=== PATIENT | male | born 1955 | race Caucasian/White ===

== ENCOUNTER 2018-03-11 12:06 | Inpatient (IN) | payer OTHER ==
[2018-03-11 12:49] LABS: BASO # 0.1 10^3/uL (0.0-0.2); BASO % 0.5 % (0.0-1.0); EOS # 0.1 10^3/uL (0.0-0.50); EOS % 1.3 % (0.0-3.0); HEMATOCRIT 44.5 % (42.0-52.0); HEMOGLOBIN 14.9 g/dl (13.5-17.5); IMMATURE GRANULOCYTE % 1.6 % (0-3.0); LYMPH # 2.7 10^3/uL (1.5-4.5); LYMPH % 25.3 % (24.0-44.0); MEAN CORPUSCULAR HEMOGLOBIN 30.4 pg (27.0-33.0); MEAN CORPUSCULAR HGB CONC 33.5 g/dl (32.0-36.5); MEAN CORPUSCULAR VOLUME 90.8 fl (80.0-96.0); MONO # 0.8 10^3/uL (0.0-0.8); NEUTROPHILS # 6.9 10^3/uL (1.8-7.7); NEUTROPHILS % 64.3 % (36.0-66.0); PLATELET COUNT, AUTOMATED 278 10^3/uL (150-450); RED CELL DISTRIBUTION WIDTH 14.2 % (11.5-14.5); WHITE BLOOD COUNT 10.7 10^3/uL (4.0-10.0)
[2018-03-11 12:57] LABS: INR 0.93; PROTHROMBIN TIME 12.6 SECONDS (12.1-14.4)
[2018-03-11 12:58] LABS: PARTIAL THROMBOPLASTIN TIME 26.3 SECONDS (25.4-37.6)
[2018-03-11] MEDS ORDERED: ISOVUE-370 76% 100ML VIAL (Q9967) As Ordered (13:11)
[2018-03-11 13:14] LABS: ALBUMIN 3.6 GM/DL (3.2-5.2); ALKALINE PHOSPHATASE 59 U/L (45-117); ALT/SGPT 47 U/L (12-78); ANION GAP 13 MEQ/L (8-16); AST/SGOT 29 U/L (7-37); BILIRUBIN,DIRECT 0.2 MG/DL (0.0-0.2); BILIRUBIN,TOTAL 0.4 MG/DL (0.2-1.0); BLOOD UREA NITROGEN 29 MG/DL (7-18); CALCIUM LEVEL 9.3 MG/DL (8.8-10.2); CARBON DIOXIDE LEVEL 25 MEQ/L (21-32); CHLORIDE LEVEL 104 MEQ/L (98-107); CPK CREATINE PHOSPHOKINASE 344 U/L (39-308); CREATININE FOR GFR 1.16 MG/DL (0.70-1.30); GLOMERULAR FILTRATION RATE > 60.0 (>49); GLUCOSE, FASTING 156 MG/DL (70-100); MB/CK RELATIVE INDEX 1.63 (< OR =4); POTASSIUM SERUM 3.9 MEQ/L (3.5-5.1); SODIUM LEVEL 142 MEQ/L (136-145); TOTAL PROTEIN 7.2 GM/DL (6.4-8.2); TROPONIN I < 0.02 NG/ML (< 0.10)
[2018-03-11] MEDS ORDERED: MORPHINE 4 MG/ML 1ML VIAL/SYRINGE (J2270) As Ordered (13:39)
[2018-03-11] MEDS: MORPHINE 4 MG/ML 1ML VIAL/SYRINGE (J2270) IV (13:45)
[2018-03-11] MEDS ORDERED: NORCO, ANEXSIA 5/325MG TABLET (HYDROcodone/ACETAMINOPHEN) PO (15:30)
[2018-03-11] MEDS ORDERED: METOCLOPRAMIDE INJ 10MG/2ML VIAL (J2765) IV (15:30)
[2018-03-11] MEDS ORDERED: HYDROMORPHONE HCL 0.5 MG/ 0.5 ML SYRINGE (J1170 PER 1) IV (15:30)
[2018-03-11] MEDS ORDERED: PROMETHAZINE INJ 25 MG/ML VIAL (J2550) IV (15:30)
[2018-03-11] MEDS: NORCO, ANEXSIA 5/325MG TABLET (HYDROcodone/ACETAMINOPHEN) PO (16:14)
[2018-03-11] MEDS: ONDANSETRON 4MG/2ML VIAL (J2405) IV (16:15)
[2018-03-11] MEDS: KETOROLAC 30 MG/ML VIAL (J1885) IV ×2 (16:19→21:19)
[2018-03-11] MEDS: NS 1,000 ML IV (16:26)
[2018-03-11] MEDS: DOCUSATE SODIUM 100 MG CAP PO (21:18)
[2018-03-12] MEDS: KETOROLAC 30 MG/ML VIAL (J1885) IV ×4 (04:23→22:24)
[2018-03-12 06:13] LABS: HEMATOCRIT 38.5 % (42.0-52.0); MEAN CORPUSCULAR HEMOGLOBIN 30.2 pg (27.0-33.0); MEAN CORPUSCULAR HGB CONC 32.7 g/dl (32.0-36.5); MEAN CORPUSCULAR VOLUME 92.3 fl (80.0-96.0); PLATELET COUNT, AUTOMATED 201 10^3/uL (150-450); RED BLOOD COUNT 4.17 10^6/uL (4.30-6.10); RED CELL DISTRIBUTION WIDTH 14.5 % (11.5-14.5); WHITE BLOOD COUNT 7.1 10^3/uL (4.0-10.0)
[2018-03-12] MEDS: NS 1,000 ML IV (06:17)
[2018-03-12 06:21] LABS: HEMOGLOBIN 12.6 g/dl (13.5-17.5)
[2018-03-12 06:36] LABS: ANION GAP 9 MEQ/L (8-16); BLOOD UREA NITROGEN 30 MG/DL (7-18); CALCIUM LEVEL 8.5 MG/DL (8.8-10.2); CARBON DIOXIDE LEVEL 25 MEQ/L (21-32); CHLORIDE LEVEL 108 MEQ/L (98-107); CREATININE FOR GFR 1.33 MG/DL (0.70-1.30); GLOMERULAR FILTRATION RATE 58.2 (>49); GLUCOSE, FASTING 109 MG/DL (70-100); POTASSIUM SERUM 4.3 MEQ/L (3.5-5.1); SODIUM LEVEL 142 MEQ/L (136-145)
[2018-03-12] MEDS: hydroCHLOROthiazide 25 MG TAB PO (08:23)
[2018-03-12] MEDS: DOCUSATE SODIUM 100 MG CAP PO ×2 (08:23→22:22)
[2018-03-12] MEDS: PANTOPRAZOLE 40MG TAB (PROTONIX) PO (08:23)
[2018-03-12] MEDS: ATENOLOL 25 MG TAB PO (08:24)
[2018-03-12] MEDS: ATORVASTATIN 20 MG TAB PO (08:24)
[2018-03-12] MEDS: LISINOPRIL 20 MG TAB PO (08:24)
[2018-03-12] MEDS: INFLUENZA QUADRIVALENT PF VACCINE 0.5ML SYRINGE (90686) IM (08:27)
[2018-03-12] MEDS ORDERED: SLF 3 ML SYR IV (11:30)
[2018-03-12] MEDS: SLF 3 ML SYR IV ×2 (14:00→22:24)
[2018-03-13] MEDS: SLF 3 ML SYR IV ×3 (03:57→21:14)
[2018-03-13] MEDS: KETOROLAC 30 MG/ML VIAL (J1885) IV ×4 (03:57→21:13)
[2018-03-13 07:02] LABS: HEMOGLOBIN 12.5 g/dl (13.5-17.5); MEAN CORPUSCULAR HGB CONC 32.9 g/dl (32.0-36.5); MEAN CORPUSCULAR VOLUME 91.3 fl (80.0-96.0); PLATELET COUNT, AUTOMATED 199 10^3/uL (150-450); RED BLOOD COUNT 4.16 10^6/uL (4.30-6.10); RED CELL DISTRIBUTION WIDTH 14.3 % (11.5-14.5); WHITE BLOOD COUNT 7.1 10^3/uL (4.0-10.0)
[2018-03-13 07:22] LABS: ANION GAP 8 MEQ/L (8-16); BLOOD UREA NITROGEN 28 MG/DL (7-18); CALCIUM LEVEL 8.5 MG/DL (8.8-10.2); CARBON DIOXIDE LEVEL 25 MEQ/L (21-32); CHLORIDE LEVEL 108 MEQ/L (98-107); CREATININE FOR GFR 1.11 MG/DL (0.70-1.30); GLOMERULAR FILTRATION RATE > 60.0 (>49); GLUCOSE, FASTING 101 MG/DL (70-100); POTASSIUM SERUM 4.2 MEQ/L (3.5-5.1); SODIUM LEVEL 141 MEQ/L (136-145)
[2018-03-13] MEDS: DOCUSATE SODIUM 100 MG CAP PO ×2 (09:20→21:12)
[2018-03-13] MEDS: ATENOLOL 25 MG TAB PO (09:20)
[2018-03-13] MEDS: LISINOPRIL 20 MG TAB PO (09:20)
[2018-03-13] MEDS: hydroCHLOROthiazide 25 MG TAB PO (09:21)
[2018-03-13] MEDS: PANTOPRAZOLE 40MG TAB (PROTONIX) PO (09:21)
[2018-03-13] MEDS: ATORVASTATIN 20 MG TAB PO (09:21)
[2018-03-14] MEDS: KETOROLAC 30 MG/ML VIAL (J1885) IV ×2 (04:16→10:40)
[2018-03-14] MEDS: SLF 3 ML SYR IV (04:17)
[2018-03-14] MEDS: PANTOPRAZOLE 40MG TAB (PROTONIX) PO (08:07)
[2018-03-14] MEDS: DOCUSATE SODIUM 100 MG CAP PO (08:07)
[2018-03-14] MEDS: LISINOPRIL 20 MG TAB PO (08:07)
[2018-03-14] MEDS: ATORVASTATIN 20 MG TAB PO (08:08)
[2018-03-14] MEDS: hydroCHLOROthiazide 25 MG TAB PO (08:08)
[2018-03-14] MEDS: ATENOLOL 25 MG TAB PO (08:08)
== END 2018-03-14 13:57 | disposition home or self-care (01) | DRG 135 ==
LOC: M MS5PR 03-12 16:13 → M ED 12:06 → M ED INP 15:27 → M PCU 17:16
DX: S22.21XA Fracture of manubrium, initial encounter for closed fracture (principal); S22.080A Wedge compression fracture of T11-T12 vertebra, initial encounter for closed fracture; I10 Essential (primary) hypertension; S30.1XXA Contusion of abdominal wall, initial encounter; S22.31XA Fracture of one rib, right side, initial encounter for closed fracture; S20.20XA Contusion of thorax, unspecified, initial encounter; E78.00 Pure hypercholesterolemia, unspecified; Z79.82 Long term (current) use of aspirin; Z79.899 Other long term (current) drug therapy; V44.5XXA Car driver injured in collision with heavy transport vehicle or bus in traffic accident, initial encounter; Y92.410 Unspecified street and highway as the place of occurrence of the external cause; Y93.89 Activity, other specified